=== PATIENT | male | born 1975 | race Caucasian/White ===

== ENCOUNTER 2017-11-16 11:38 | Outpatient (CLI) | payer MEDICAID ==
--- NOTE | 2017-11-16 12:31 | XRAY Report ---
Procedure Date: 11/16/2017 Accession Number: [id number] / [id number] Procedure: XRN - Cervical Spine 2 View CPT Code: FULL RESULT: EXAM: Cervical Spine 2 View DATE: 11/16/2017 12:05 PM CLINICAL HISTORY: cervical radiculopathy COMPARISON: None. TECHNIQUE: 3 views. FINDINGS: Alignment: Normal. No spondylolisthesis or scoliosis. Bones: The cervical vertebral bodies and posterior elements are well visualized from the skull base through C7-T1. No fractures or bone lesions. Disks: Moderate degenerative disc disease. Facets: Mild facet arthropathy. Soft Tissues: Normal. No prevertebral soft tissue swelling. The visualized lung apices are clear. IMPRESSION: Moderate degenerative changes. No evidence of acute fracture. [facility]
== END 2017-11-16 11:39 | disposition home or self-care (01) ==
LOC: DI.N 11:38
PROVIDERS: ATTEND Nurse Practitioner
DX: M50.31 Other cervical disc degeneration, high cervical region (principal); M47.892 Other spondylosis, cervical region
CPT/HCPCS: 72040

== ENCOUNTER 2020-10-29 10:30 | Outpatient (CLI) | payer MEDICAID | END 2020-10-29 23:59 | disposition home or self-care (01) | LOC: COV 10:30 | PROVIDERS: ATTEND Family Medicine | DX: R50.9 Fever, unspecified (principal); R05 Cough; R53.83 Other fatigue; R09.81 Nasal congestion; J34.89 Other specified disorders of nose and nasal sinuses; Z20.822 Contact with and (suspected) exposure to COVID-19 ==

== ENCOUNTER 2022-11-29 22:08 | Outpatient (CLI) | payer MEDICAID, OTHER | END 2022-11-29 23:59 | disposition EMS.NT | LOC: EMS 22:08 | DX: Z04.1 Encounter for examination and observation following transport accident (principal); M79.652 Pain in left thigh; R03.0 Elevated blood-pressure reading, without diagnosis of hypertension ==